=== PATIENT | female | born 2000 | race African-American/Black ===

== ENCOUNTER 2021-06-18 14:07 | Emergency (ER) | payer OTHER ==
[~2021-06-18] VITALS: Ht 167.6 cm; Wt 180.0 kg
[2021-06-18] MEDS ORDERED: ACETAMINOPHEN 500 MG TAB PO ONE (18:30)
[2021-06-18 19:09] LABS: BASO % 0.6 % (0.0-1.0); EOS # 0.2 10^3/uL (0.0-0.5); EOS % 3.1 % (0.0-3.0); HEMATOCRIT 41.6 % (36.0-47.0); HEMOGLOBIN 14.1 g/dl (12.0-15.5); LYMPH # 2.8 10^3/uL (1.5-5.0); LYMPH % 38.4 % (24.0-44.0); MEAN CORPUSCULAR HEMOGLOBIN 31.3 pg (27.0-33.0); MEAN CORPUSCULAR HGB CONC 33.9 g/dl (32.0-36.5); MEAN CORPUSCULAR VOLUME 92.2 fl (80.0-96.0); MONO # 0.7 10^3/uL (0.0-0.8); NEUTROPHILS # 3.5 10^3/uL (1.5-8.5); NEUTROPHILS % 48.8 % (36.0-66.0); PLATELET COUNT, AUTOMATED 285 10^3/uL (150-450); RED BLOOD COUNT 4.51 10^6/uL (4.00-5.40); WHITE BLOOD COUNT 7.2 10^3/uL (4.0-10.0)
[2021-06-18 20:32] VITALS: BP 126/73
== END 2021-06-18 20:39 | disposition home or self-care (01) ==
LOC: M ED 14:07
DX: N92.0 Excessive and frequent menstruation with regular cycle (principal)

== ENCOUNTER 2021-06-27 11:38 | Emergency (ER) | payer OTHER ==
[~2021-06-27] VITALS: Ht 167.6 cm; Wt 81.8 kg
[2021-06-27] MEDS ORDERED: IBUP-1022 PO (12:30)
[2021-06-27 14:27] LABS: HEMATOCRIT 42.8 % (36.0-47.0); HEMOGLOBIN 14.5 g/dl (12.0-15.5); MEAN CORPUSCULAR HEMOGLOBIN 31.4 pg (27.0-33.0); MEAN CORPUSCULAR HGB CONC 33.9 g/dl (32.0-36.5); MEAN CORPUSCULAR VOLUME 92.6 fl (80.0-96.0); PLATELET COUNT, AUTOMATED 252 10^3/uL (150-450); RED BLOOD COUNT 4.62 10^6/uL (4.00-5.40); WHITE BLOOD COUNT 5.9 10^3/uL (4.0-10.0)
[2021-06-27 15:05] LABS: ACETAMINOPHEN LEVEL < 2.0 UG/ML (10.0-30.0); ALBUMIN 3.9 GM/DL (3.2-5.2); ALT/SGPT 95 U/L (12-78); BILIRUBIN,DIRECT 0.2 MG/DL (0.0-0.2); BLOOD UREA NITROGEN 8 MG/DL (7-18); CALCIUM LEVEL 9.4 MG/DL (8.5-10.1); CARBON DIOXIDE LEVEL 28 MEQ/L (21-32); CHLORIDE LEVEL 106 MEQ/L (98-107); ETHYL ALCOHOL (ETHANOL) < 0.003 % (0.000-0.010); GLUCOSE, FASTING 84 MG/DL (70-100); SALICYLATE LEVEL < 1.7 MG/DL (5.0-30.0); SODIUM LEVEL 139 MEQ/L (136-145); THYROID STIMULATING HORMONE 0.847 uIU/ML (0.463-3.98); TOTAL PROTEIN 7.2 GM/DL (6.4-8.2)
[2021-06-27 15:08] LABS: AMPHETAMINES LEVEL URINE NEGATIVE (NEGATIVE); BARBITURATES URINE NEGATIVE (NEGATIVE); BENZODIAZEPINES URINE NEGATIVE (NEGATIVE); CANNABINOIDS URINE NEGATIVE (NEGATIVE); COCAINE METABOLITE URINE NEGATIVE (NEGATIVE); METHADONE URINE NEGATIVE (NEGATIVE); OPIATES URINE NEGATIVE (NEGATIVE); PHENCYCLIDINE URINE NEGATIVE (NEGATIVE)
[2021-06-27 15:12] LABS: RSV AMPLIFICATION NEGATIVE (NEGATIVE)
[2021-06-27 15:13] LABS: HCG, SERUM QUALITATIVE NEGATIVE (NEGATIVE)
--- NOTE | 2021-06-27 17:52 | ECGEPIP ---
[facility] - ED Test Date: 2021-06-27 Pat Name: MARTÍNEZ LOPEZ Department: Room: - Gender: Female Curatorial Assistant: ED : 2000 Requested By: EMY ESCOBAR Order Number: [id number] Reading MD: Karen Huerta Measurements Intervals [place] Rate: 90 P: 46 AK: 134 QRS: 62 QRSD: 76 T: 27 QT: 368 QTc: 450 Interpretive Statements Normal sinus rhythm No prior Electronically Signed on 06-27-2021 17:52:23 EDT by Karen Huerta
[2021-06-28 00:44] VITALS: BP 130/60
== END 2021-06-28 00:49 ==
LOC: M ED 11:38
DX: R45.851 Suicidal ideations (principal); F33.9 Major depressive disorder, recurrent, unspecified; J30.89 Other allergic rhinitis

== ENCOUNTER 2021-07-13 11:44 | Emergency (ER) | payer OTHER ==
[~2021-07-13] VITALS: Ht 167.6 cm; Wt 86.3 kg
[~2021-07-13 11:44] MED LIST: IBUP-1022 PO
--- OUTSIDE RECORDS SUMMARY | 2021-07-13 11:50 | CCD ---
Author Author [facility] Organization [facility] Address Unknown Phone Unavailable Care Team Providers Care Commercial Glazier Name Role Phone Abner Delacruz Angel Unavailable Abner Delacruz Angel Unavailable Mitzi Garcia MD Unavailable Unavailable Mitzi Garcia MD Unavailable Unavailable Mitzi Garcia MD Unavailable Unavailable Mitzi Garcia MD Unavailable Unavailable Mitzi Garcia MD Unavailable Unavailable Mitzi Garcia MD Unavailable Unavailable Mitzi Garcia MD Unavailable Unavailable Mitzi Garcia MD Unavailable Unavailable Mitzi Garcia MD Unavailable Unavailable Mitzi Garcia MD Unavailable Unavailable Mitzi Garcia MD Unavailable Unavailable Mitzi Garcia MD Unavailable Unavailable Mitzi Garcia MD Unavailable Unavailable Mitzi Garcia MD Unavailable Unavailable Mitzi Garcia MD Unavailable Unavailable Mitzi Garcia MD Unavailable Unavailable Mitzi Garcia MD Unavailable Unavailable Mitzi Garcia MD Unavailable Unavailable Mitzi Garcia MD Unavailable Unavailable Abner DELACRUZIN Unavailable Unavailable Rey AG MD Unavailable Unavailable Rey AG MD Unavailable Unavailable Rey AG MD Unavailable Unavailable Rey AG MD Unavailable Unavailable Rey AG MD Unavailable Unavailable Rey AG MD Unavailable Unavailable Rey AG MD Unavailable Unavailable Rey AG MD Unavailable Unavailable Rey AG MD Unavailable Unavailable KIMBERLI, S SISI MD Unavailable Unavailable KIMBERLI, S SISI MD Unavailable Unavailable KIMBERLI, S SISI MD Unavailable Unavailable KIMBERLI, S SISI MD Unavailable Unavailable KIMBERLI, S SISI MD Unavailable Unavailable KIMBERLI, S SISI MD Unavailable Unavailable KIMBERLI, S SISI MD Unavailable Unavailable KIMBERLI, S SISI MD Unavailable Unavailable KIMBERLI, S SISI MD Unavailable Unavailable KIMBERLI, S SISI MD Unavailable Unavailable KIMBERLI, S SISI MD Unavailable Unavailable KIMBERLI, S SISI MD Unavailable Unavailable Re-disclosure Warning The records that you are about to access may contain information from federally-assisted alcohol or drug abuse programs. If such information is present, then the following federally mandated warning applies: This information has been disclosed to you from records protected by federal confidentiality rules (42 CFR part 2). The federal rules prohibit you from making any further disclosure of this information unless further disclosure is expressly permitted by the written consent of the person to whom it pertains or as otherwise permitted by 42 CFR part 2. A general authorization for the release of medical or other information is NOT sufficient for this purpose. The Federal rules restrict any use of the information to criminally investigate or prosecute any alcohol or drug abuse patient.The records that you are about to access may contain highly sensitive health information, the redisclosure of which is protected by Article 27-F of the [facility] Public Health law. If you continue you may have access to information: Regarding HIV / AIDS; Provided by facilities licensed or operated by the [facility] Office of Mental Health; or Provided by the [facility] Office for People With Developmental Disabilities. If such information is present, then the following [facility] mandated warning applies: This information has been disclosed to you from confidential records which are protected by state law. State law prohibits you from making any further disclosure of this information without the specific written consent of the person to whom it pertains, or as otherwise permitted by law. Any unauthorized further disclosure in violation of state law may result in a fine or longterm sentence or both. A general authorization for the release of medical or other information is NOT sufficient authorization for further disc losure. Allergies and Adverse Reactions Type Description Substance Reaction Status Data Source(s ) OTHER OTHER [facility] Encounters Encounter Providers Location Date Indications Data Source(s ) Inpatient Attender: Angel Sargent er: ANGEL DELACRUZAttender: SISI AG MDAttender: Mitzi Garcia MDAdmitter: Mitzi Garcia MD [id number] 06/28/2021 02:22:00 AM EDT - 06/29/2021 07:30:00 AM EDT [facility] Patient discharged. Medications No Information Insurance Providers Payer name Policy type / Coverage type Policy ID Covered libertarian ID Covered libertarian's relationship to tesfaye Policy Tesfaye Plan Information U [id number] Self [id number] [facility] [id number] [facility] [id number] [facility] [id number] Problems, Conditions, and Diagnoses No Information Surgeries/Procedures No Information Results ID Date Data Source [id number] 06/29/2021 05:26:11 PM EDT [facility] Name Value Range Interpretation Code Description Data Dana rce(s) Supporting Document(s) Discharge Summary [facility] KWROQu3iHiUVAjUq16/ZAIbjWJNtl2NqEXxwMMl9DNknFZKlP0MsADQ8zB2zILW2GBxIBcRgDtXdKIP0 lbm [file] AgICAgICAgICAgICAgICAgICAgICAgICAgICAgICAgICAgICAgICAgICAgICAgICAgICAgICAgICAgIC AgICAgICAgICAgICAgICANCiAgICAgICAgICAgICAg ICAgICAgICAgICAgICAgICAgICAgICAgICAgICAgICAgICAgICAgICAgICAgICAgICAgICAgICAgICAg ICAgICAgICAgICAgICAgICAgICAgICAgICANCiAgICAgICAgICAgICAgICAgICAgICAgICAgICAgICAg ICAgICAgICAgICAgICAgICAgICAgICAgICAgICAgIC AgICAgICAgICAgICAgICAgICAgICAgICAgICAgICAgICAgICANCiAgICAgICAgICAgICAgICAgICAgIC AgICAgICAgICAgICAgICAgICAgICAgICAgICAgICAgICAgICAgICAgICAgICAgICAgICAgICAgICAgIC AgICAgICAgICAgICAgICAgICANCiAgICAgICAgICAg ICAgICAgICAgICAgICAgICAgICAgICAgICAgICAgICAgICAgICAgICAgICAgICAgICAgICAgICAgICAg ICAgICAgICAgICAgICAgICAgICAgICAgICAgICANCiAgICAgICAgICAgICAgICAgICAgICAgICAgICAg ICAgICAgICAgICAgICAgICAgICAgICAgICAgICAgIC AgICAgICAgICAgICAgICAgICAgICAgICAgICAgICAgICAgICAgICANCiAgICAgICAgICAgICAgICAgIC AgICAgICAgICAgICAgICAgICAgICAgICAgICAgICAgICAgICAgICAgICAgICAgICAgICAgICAgICAgIC AgICAgICAgICAgICAgICAgICAgICANCiAgICAgICAg ICAgICAgICAgICAgICAgICAgICAgICAgICAgICAgICAgICAgICAgICAgICAgICAgICAgICAgICAgICAg ICAgICAgICAgICAgICAgICAgICAgICAgICAgICAgICANCiAgICAgICAgICAgICAgICAgICAgICAgICAg ICAgICAgICAgICAgICAgICAgICAgICAgICAgICAgIC AgICAgICAgICAgICAgICAgICAgICAgICAgICAgICAgICAgICAgICAgICANCiAgICAgICAgICAgICAgIC AgICAgICAgICAgICAgICAgICAgICAgICAgICAgICAgICAgICAgICAgICAgICAgICAgICAgICAgICAgIC AgICAgICAgICAgICAgICAgICAgICAgICANCjw/eHBh V4bsaCLltgL9P5ziDc4DQr3GYJ4jy6JwUKHaILhrkvWaTnoFZfYhEMLsRmfNEsj7MQugUX8EbZKeS7Yb C5IhKHiiQE0RSOXkHWZdpZKxOMHbEDWfFkV1DDDwMGkgPC3BxLFyMFdaVBYbWOYsVfUcIKQdYFWsUHCx SLDgDLERISXpPVEvRhSfAYYlAKHwTSnxVLEMNRU2JX GzYqXyHJByNQLbItTvDPOIPQ7PLiOkK2NiqD80NWWfCYs+Fo1XKK3ln1WxOOg5TLQaFL7evr7SKKwVBi TdT6DipeF4KXQxRJKvEm7UIGRdQVUolBN3FyRwMGNORgTuR6JprH03XIFQYg4+DQplbmRvYmoNCjUyID Rno0AyKIv3YX9ASHBgYOo0vIYvMCqqU7jrnqawHGE0 oK1fnxpoGuwgTaWnvWrfELZdLEU9EBGtNW7XGJZ9SSDmZekcEyItXCYwUnsrZJSJJQmQDnQvE7Pmq0Ys LoL7KABgUjEtIAekQFSxFrT4XF39iPqgUQ1SMNDiBUXzTD69BNCbPRIwDq5JNm3FTqAqAR6gdh1BKLFw XHToDwyQEkz9VZegCZ7VnRVwJ7XnvCTtd4wQGtVyA0 BIIVQ3ACFiGv5VJMIvCfZyUQTzZNgkKG1vEWBhNXCOyWcavkA4CD8UCC5dkhHoKB1WNrIjOp6qTf5JXx TrU0SuG9TqYADsVIGRBZxdSI2AGXefVV3aYU8Sq4KVgAOinC2nfv9PVVRdEXYeAzoadd7EExlbI8K0oT cmSIGqFSBoZLHBMYviEC3FDUKjAQC8KST9XBMdNPJM LqHeQ45jOJ2IN1Nwj24dEhO3QVDgEaPoOWdqOJ40xYnqejEvrDFooCjrAG6RBt1+DQplbmRvYmoNCnhy KKBOZpPsFNINBkQoTBShNDSoJBBvRtK3XtJvGe5SZUHzEPDwJGFvLbJxNJYkVBLrUZhbLHMdSRXbQUr9 ZKXqVBQnOZ7NGoCjWQQdLjR6DlIzUWIzCBQcpu1WAL PhFOXsJXY8SxJrGNRaFOTvDRlkGFSeJGS6NUc0EGWfTOVbXX3MIvAoMXLtYQT2LNFeTZTcZAQgdi0JQJ OvNNStEUduTlIcTHCyPSCjWGfcXGRwBIK2PPZpLDSyKFHcVB3XDjQhOIQnMPJ2WmWhLKXlRAFdar4DDJ RjLJBkEmTzJVAlNMZmVAXoJNiaJPEjZKF3BcbeDLVk UCLrSQ2TDtZvVACoUYR7TUujNHQgFJJasp4ZNSXqSUDoJNRrQVUeMRMyOHFoYGjhVGDeBAMdRdE8TDGd ZHFpMI8YGvDjKTXqRbI7FYMgXYHcTKOnah5DMQDzZCIbIBp6RLAtVSJeHWIbAImfYCLiSRS2Jhn3NBHz QROhZT1TVoBoNYMmHih4CKXuFQRcXHAqya6SMRAwZZ BcYeOeYnTjDVDqFQKrLDerZOVsVYFuPuN4OYLfFCXtIJ4JSpWwBHIjLtQvLQAgRNMgGNYrvk3ZQRTnMI LhMeIfXxXjZPTsGSVkOUcdZDTmDAQ3QONkKEJsYCBjKY7TWtOlNMSqKaveTZhyDTWlLYIsnj8JCEKxCU RkPVEnENBwNFCtGBBfDOxoTEOaYNZ2XsN8WLXyKTIz FM8WAjChPLCvXhf6WYagIRJoXXZjxc5ZYMVpRWS2QRR9TEMlOCMbNEDwECahJRTnJEVdPgAaQONdPNKa WB4LErWcYGRbBEI2DRftMWUjPPOeyt4RZNFcOJI4NnZxSlDqOUUcWSCgWQbkOALvDDUgVFQhYQBcOYUw VG7XSsUxSFBvOIR2QvMxHTPkBPAnda7LWLEsEIR8Tw s5ZTIaNBMcYMLaYEtkTIWkMAMwBSR3JQOpUYVgQI7CNkIhWCNuDWUsOUpnMWCbMJBuza4QRDErNWK7SP M9MnSiQUMlMQVqFHkdZLSmKDO3VDR0ITXpSZRxMU1CSkNsEQXzFCZmGCioWYJvAOEhxc8WHNNbVFV4IW Y7AGBnUWErJVQlXVfgUECzKXX4Ysd6UOAuWVLnET0D NuLgWVEgIsG3CjBkLOKvAQBnmu6KTHBqJTQ1ZHu5RyRfXCDlAQIdLRwqROFtQIBcRWS2HWJpTGGuPS2B FzNgSDQbXyP8CPYlNHAbXFEiyp1TFPJwNWJ1JNN3HrLdVJMhPWKmCQfaULPxSXSsArc3SEGhICWrMS5N UqRuWVLqRiLcFTwcVGTkOLKzcy9TJMVyLZL3LdW8KH RaTQAlDOVmFMmlPNWhBKIgMsPrDIUuFGCqAV6HOeThTEDvLmBhCbIgGWLvIVJhkl3YJIZvFMD8OBEeNO IwRBClHLIyCXjcAWVhOLR0WmLlVPEoTLXeCE9YExBmTSxaDUMZYmo5DNxkK7a6HHH6VK9FC9Iya0NdHG RvKRWOLFikQP6vunDqWHDbVg0JQ9qELgdlPfSvYTBz CsKxUnHrYTX8L4W6EqYxRHC0GqQ7ZSLeWZ9kAQS1ArX6IMSqBeYxBMF0LXokUMckZlX2GcTeTiW8VMSf KmZcFT3RMy2FMbA2GSV1aMSkCr3UQlR8AApWHjHbVZ4XKZh= ID Date Data Source [id number] 06/28/2021 08:03:21 PM EDT [facility] Name Value Range Interpretation Code Description Data Dana rce(s) Supporting Document(s) History and Physical [facility] PGEYTb8mRrDHHnUc35/QUDxbANGda2KfGMoaFDo8TIfhNPNgW9QoAVR0pE7zDIJ6UAvCBhWqJpChMVG9 lbm [file] 0QPlS5ZNN8pCOxSr7AWzM2VYQGPjKrRE8CSNa= ID Date Data Source [id number] 06/28/2021 08:02:31 PM EDT [facility] Name Value Range Interpretation Code Description Data Dana rce(s) Supporting Document(s) History and Physical [facility] APBBEa9bOzEPFpEp66/JVCliCQBro9UzBEnkUPt1UJaoLTZrQ5BqSXI2qZ2eVLV9MSuJJzIiVfZkWIA2 lbm [file] AgICAgICAgICAgICAgICAgICAgICAgICAgICAgICAgICAgICAgICAgICANCiAgICAgICAgICAgICAgIC AgICAgICAgICAgICAgICAgICAgICAgICAgICAgICAg ICAgICAgICAgICAgICAgICAgICAgICAgICAgICAgICAgICAgICAgICAgICAgICAgICAgICANCiAgICAg ICAgICAgICAgICAgICAgICAgICAgICAgICAgICAgICAgICAgICAgICAgICAgICAgICAgICAgICAgICAg ICAgICAgICAgICAgICAgICAgICAgICAgICAgICAgIC AgICANCiAgICAgICAgICAgICAgICAgICAgICAgICAgICAgICAgICAgICAgICAgICAgICAgICAgICAgIC AgICAgICAgICAgICAgICAgICAgICAgICAgICAgICAgICAgICAgICAgICAgICANCiAgICAgICAgICAgIC AgICAgICAgICAgICAgICAgICAgICAgICAgICAgICAg ICAgICAgICAgICAgICAgICAgICAgICAgICAgICAgICAgICAgICAgICAgICAgICAgICAgICAgICANCiAg ICAgICAgICAgICAgICAgICAgICAgICAgICAgICAgICAgICAgICAgICAgICAgICAgICAgICAgICAgICAg ICAgICAgICAgICAgICAgICAgICAgICAgICAgICAgIC AgICAgICANCiAgICAgICAgICAgICAgICAgICAgICAgICAgICAgICAgICAgICAgICAgICAgICAgICAgIC AgICAgICAgICAgICAgICAgICAgICAgICAgICAgICAgICAgICAgICAgICAgICAgICANCiAgICAgICAgIC AgICAgICAgICAgICAgICAgICAgICAgICAgICAgICAg ICAgICAgICAgICAgICAgICAgICAgICAgICAgICAgICAgICAgICAgICAgICAgICAgICAgICAgICAgICAN CiAgICAgICAgICAgICAgICAgICAgICAgICAgICAgICAgICAgICAgICAgICAgICAgICAgICAgICAgICAg ICAgICAgICAgICAgICAgICAgICAgICAgICAgICAgIC AgICAgICAgICANCiAgICAgICAgICAgICAgICAgICAgICAgICAgICAgICAgICAgICAgICAgICAgICAgIC AgICAgICAgICAgICAgICAgICAgICAgICAgICAgICAgICAgICAgICAgICAgICAgICAgICANCjw/eHBhY2 xzmXZuerI5Q3wyIj8LEy3UTH0uf0RySSXmIAeqzxMu ThvWTkCnICHnIpzNKcu4PIszUA6DnINaR4CmY3UdVPrqUN7XNZAjASDahZCrCDZgZASrYaB2AFOiUTvo NE6MrXGkQBsnFOHmFZWeFjZeBUVtGMOeISPuZPKiZDBTDWKuPATvYgShHBRqJHFeWMgjSNADLYGbBFPr LtDeKdViTOKnAY5SAWXxO400veNxOE3ZAg2DKaRtGP 1pyd5VOSKfXUTsMwzWKxe8WSthCP4GmJHecZP7QgTnIPVBRxQoS1osg4YzAFVmQIIZBNtlHA1Uc0BcqJ AxDQo+Yj6TXT1gw2EoHFd6BjQjOX4pnn1DTFlMLzAaI9RazPzrPBdcVWMgpFNMz9JoL6GsYjuzBLJgUP KmFBHoOa6bXXHzHJRrAcF2IYZJPC8QMISqOUOqkWAk ZBQzURZBCR2XEZxeNLR7CRAdyzDvaCFpGFglUW6NFKEmhhZdKOOlRROWUVr+Aq2YSC1ht9QsEFrbIIVj VE0sjh0NEJgYBdFvJ9N8bZBcU5Irpl70QB4DaFD6kFHfDU3SiQ3oGA8Us6ZuLHLtNyMmTCSyBGLiVLTq UJAbQqHiFL7NCDZcMnAstZMwTUUuGvHoBoYjKDMlQL HZVnBbE9IjHYerDzSpNHBSVG5IRigpTAYyG4TBFByTVC7QR0sXJ8UGXI3OFSdIQuwJIbERT0RDT0DOP5 4KVrSaJB2+HD9NOj7ERpLoKN0upt4NGNacQJMgRijCAgk2WZrgTU2WlWWjS1InmCOtx1nCTvSvE4UNQE UkLPWwJi6GARAvHsTmOBZkRKxrTI6eLRPjQZUPmHzi aoM5IT5JFS5blsNuUQ5IXgQiYv6xQy0QOfGcZ8EgT0XcWOHmLPTBZOynWY6PWFgpRZ0cIA3Wu1ZXfEFt cO3hdr0FHKPsRYNpLvicvz0TXfkiI5H3ySqiFEXrPUMjJMKDPLazSM5EAGDtYRP6VQQ0ACSkMENIPtYq M54gRJ2LT3Lpy98cZdY0QQDkWrFjLQpjJZ20iUmbbo NsnJRpsPpnPL8SOd4+XYkndhApUlfDVrgpMAERYsKyUQhTBsBpHDHtPCVqZOKgOeE4EfFnXe8UUGIdOR TiXTSqSmGvCWWrNEVlXPklDTMpOZO9ShzyIHHeNNSmTO5KRgUuGROpWEEbJbSmPDMhVMUhxo1NZKQuHE StKJF2LzKxGRExJCYqDYscSZEsJKQ8YmJ5TBVhYUWc AN6ZWcJuQQRgPCG8LrtzEJWaVUFxeo6LDXMaAYCsQYEmUHNgGPRaBFCuVBagXDAqIMV2BVM7KBMyLJTc HA7TLwYfUUFzWUA9YcZiYXTfEJSxnf2QTECyXLXsWab7BTDxBCYaWWHlHBjyRKMnRZD6QYXgQUWlEDKm AY9YYmAhRVPlHAP9YJarFFWtYNIklz9YQHAqCGFqSU U6FCHsOXXyHOUpMSxoLFYmNYK7UdWjQNDtQKVfIS8INxUbSDEgTyL3LCdaNBPeNZTpdg9EHCRbWKDkTv T0OGNiWFFvXCExWVujUCMgZVJ6Odw5LPVzFQOoIN9JCvXxJDDzTNK4KARdSIKyNZEbry7STNWyUQGjEg KoXJLrMDIdXUHnOUavYOEbXTPlShIzXTYiXEAaJL5L NqSzCEGvIaO9RTJuCSAaLGNwea7SAZNzJMVpNFV2GBIhYJIyFQUwARgyZDVnWRFlFrEdIORxKOIyKO4Y AnFyWIUwSsW4EFVrOBHeOFKpdj8GCPBoJYRiPaloLLLwCDAiOHYcDAxjPXYpRKUjWInaTEXiYNGeKO6Z HhLnEJLoIgZcYRNnVEWyURFihe4SVGVfKUXtJPK9Sb FtATRtOWSgZMgyGOGkTQZ2CQSiJXAwHFJpQR9YFwMdBYPrKkX6DJCeMWTnAHMlyx9EPHGoGIVhOPD7Jo KyDNOkDLErOPstPOYoWKN2GwngQELySCJyEM0LSbQuHLMmBfD6YLFuJPHgCAEfta3WNQIxQMRdFga9IF FwDDCvXCZxYWzhLWByOCI5SNG9MHXfPFWgPD3CXiCb HPRwBnukYVScGLOiITSxqs4OARAsERJdUDBiSdThTSTiNUUhGAegBQCtIGC4TTx4TDUfEBOmTB2DDcQl ZSCtMOJxFEHhQMTxPULifd0TYQZfVLI1QzT9JcKiPLStPAVvNZlfAEIeAIWpLQs1PYExYNBwAQ4GMvCl UJIoWCIdMbOzJVVgBELmxy6MJNEwFVI5JWC7HNCwVQ HvYHLjPUanJDZqOVQ3UcNgTGGuXRVgCR0ZMwVwSGXlCAHnZPVnVAUfCSNddd7VACXbDMJ0RkE7KkMhSN AbETNhISdxUGRzZFU8YLslOORcIHXmLB5BVjBeEPhfAORTSjl9GYmxW4n1LBM6EJ6ZW3Yqv5XkYUytKY JMZQckSJ3aflCbLWVkEz6PA3nWGrpuQnVoFUM8YKMj N9Q3Lxr9HvQoFbKtRNBxA0N5LzZ8XZ0xUACmWTQzQFmkYYD8JYlpIDLiZQNxDtBeEtGyGNMwFHG6JmBp UX9KTz5SNeO5PFD9qAEvDz0UVBT9DwwDWtZxIJ6OTXu= ID Date Data Source [id number] 06/28/2021 02:19:[address] [facility] Name Value Range Interpretation Code Description Data Dana rce(s) Supporting Document(s) Consultation [facility] HPBZGk4gWiQHPzAy75/GLFlpKTTvd2FuJSdpHUb3QKhkMTIoA9RdIDQ5bH4wQOB1JWyZWvKgVnYsTMP3 lbm [file] DARLIN+EDdkEVmirKe2tEHbRCNsDr0GEFTvHNYxEJIhGFMnINJwLPDvJNVlSDLhKDJhMQKrHIHmEXVlUBUb ICAgICAgICAgICAgICAgICAgICAgICAgICAgICAgICAgICAgICAgICAgICAgICAgICAgICAgICAgICAg HW5GLYMsPRSvZEEwXPYoSYYmZKBqNDFjNSZmUZPqVZ AgICAgICAgICAgICAgICAgICAgICAgICAgICAgICAgICAgICAgICAgICAgICAgICAgICAgICAgICAgIC FfJKTpSMTlPVQxOA9IKQEqHXOfODXtEGSeRELwUJYoPZCqBIEpVQDyOSFkHHEzKGNiHZOuQRDpZXJlIU AgICAgICAgICAgICAgICAgICAgICAgICAgICAgICAg ZBVwZNXqWFFwQWLfOAJiAHFkMQHqDT5AMYOpBBKbABYrGAIhJOIcRCPdWXMvZDPrOCOoWPUhTCGxHFKx ICAgICAgICAgICAgICAgICAgICAgICAgICAgICAgICAgICAgICAgICAgICAgICAgICAgICAgICAgICAg AEBjLD7BQRCiMXWaRMWtFHRvBHPsIGAnSFUuWXDiQF AgICAgICAgICAgICAgICAgICAgICAgICAgICAgICAgICAgICAgICAgICAgICAgICAgICAgICAgICAgIC LlJVKkKSZcLBJfCDXjVK3AMFXaPQPbIDChOWUrELWaOKPvRXArGRHrIMEwOZMxMHZjPLDcDPHmQBKvZG AgICAgICAgICAgICAgICAgICAgICAgICAgICAgICAg LCSkOSZiOBFvOUHeKHNuQHEuVNFfJQZdUF8GOLMeNMPbXAOcXOSgQLTpAOHnQBWbDLXcQROgJZYcMHWp ICAgICAgICAgICAgICAgICAgICAgICAgICAgICAgICAgICAgICAgICAgICAgICAgICAgICAgICAgICAg QRDeUSUtEN1VAKQfXJCrWNIjLSLgAXCmUQHrFHDbLU AgICAgICAgICAgICAgICAgICAgICAgICAgICAgICAgICAgICAgICAgICAgICAgICAgICAgICAgICAgIC GjQSNdZETxUGOoHFJsGDOsMP8HQUPxEFGfWGZnJCYmOFRyDCVyHFTxPAGyDVJjCMTzOKWyHLXwFMUtBC AgICAgICAgICAgICAgICAgICAgICAgICAgICAgICAg OZArYNIwWVYoYPEqDCPnRHCiPZHsSYJeVYOrWL3YZDOvDMOvXNIiMJThJNQvLXGmXEAlPEOhGQJbQNOv ICAgICAgICAgICAgICAgICAgICAgICAgICAgICAgICAgICAgICAgICAgICAgICAgICAgICAgICAgICAg HMVpBISsYNPnMR2CJD91iJHqh3Z1IQXmZX2fihu/Pg 9FMGfhpnRizZUfYI4ZOlSlEQ0qfe8BUtDpLG3uck1OFHsIGoUtB4O3oMDhTEOuNMSRMnAxK32rGUtpNa 04GJqdBMVkHtXcDLu2Tl6YGxWhX4qsEQWrYfQ5DPRlFhR2MIYsIpK3EDGlHmAiCVNmWLVmLRTeREZHRE 1LVcDtZ5EghA04GLMEJk2+JTaifoNiAjhREmY3MORc o0QeQKn4WV8KQJSpZynfp0QvNtgmRJRMVOojGQ6BEGO4WWY6UPIgEi7HNWFkZ084rjGrCX7RJe1WIlAs TN8mpa5CNmniXNOdXykPKgg1FOmjDE2VkSIiOKrVi31aeSj0icBhjYUDSXJhzNEwfGDfTMCCxZLhs0la jgEvNNeDR9egLKPlKRJwGc6sNHLsQHZeHmZ7QDTQHB 4WHMKjPMZhgNNmBTXnJGFXXL6IZKeoNCY9JONqwiQvmQLvMHqzOI8RGSYlsuAwDrsnCWHPMJn+Pg0KZW 4au9UiUKjxJXKpDJ6vkl7SXUcTNrAgJ7P0wAVjU9V2UGvvIa2HJIPcUUZzBmYiUOTVGMvaCH4XTC0dci V1DU6GyGMiGQUmDPAdiFQgIVs8A13wvKWmXAfaLG8V ICA+Maximo+Vo0SWTUoWHYiQGYnKgNhWMCDXlTzW9MlB2XTg7DvB2ShNW58yRjjkvPnZUrqJX0GAB1eOYRv YFQQVN9EkCVrhN1mthSmWmBxPTMEGpYbR35rmTZdSEKdLUL9CGNrIj2KGLNeX9RyyoHoaQtzxtDuWQWt DOVGQW1AORejlaVykZEbeLelDA09hOmrHH1ZLs8NNj SvZQ6hkr4VoKTyHo6FYHKoJL4MYRBfVNNdHDRvRZR3MVSdLuTaUSpeQWSiDGJzEYI9QSRuDXJxBW2HSh YaIZSaRnC1FBIrFZMbHCBxpp4TRRQcXJVkCsUnUPXyXYZwTTCqDTboDHTqNGPpKLL2BVUeDMGyZU0DYv NvGXYaYIG5BMMfNNDgBEDbdy1XAXIwORZjWzbaKdHx LORpOSOmINfhRNGvMKH9HIHsYSYzEMWwFQ1FMjOsQVVbTSpoCZyjVPIqWHLzko4MFSJtVXUpSCo7JTRg VOKhBYImWMvzOHHgKNEtAHJ3QQLrALZiNK0UQjDtTQCkALB2CVQmMYZjYIBkfy8QMGAuQIXzIGAnQQEt VZXkALTkGJnaXNPtYHN3QoU9IXPxEXJkBU4FQdWqBP IzLNG7YeKqHRHiQZBuqg4GBBJoIKXjYgSmEXUzAHCwQJAaOWdsLGQlBII1TxXgOVHjZIApRG6ZHgZgMB GhLOp4BPFaLPDnONZjti2RCRIlYKXuHYg2OwNnAOLoEAWkGSrfONTjIJM4TIb4XMAvAAVmUH7RAcFeBQ MwLDdwKkCmNDYmJKHdqi9OWTKbKIPeZEY8VDMmUXAg CBRdHGjeLDQaZMDqJJT0NALuSONvHC8CYcHmMSGkWwIpHqAwUFFzOFNyvx5SCICwNSMzMWJeUNIhWJVy KFOwKSpwWZQuMOFkPFXzZJIfPNWzYG5WXzNhYENeGmN1CqCqKQAfTKEsqb1EDRJjPZOcLrXiMPRcMCNe ZXYzTDhsPHBeKEOgLkm0AQSeAKTlYK9DZzPhHZHvRg U8MSjvJHXkLADxsy1RyIHqsAyxgf3CBUfHAj3QyErsIZQzMMxvPn0zlWGoQVEnIKIPEu6TedBlCBVjUB QPQQqhFJYuTLCiRnKrQ1AbCikxEOw7SBIiVsGrFpCkAxIqFoq4TfOvMdZ0YgWsDBFoF0T7M2V6ZOOeVH K5HfL4IsI8GKI6BLH0KHQ+IC7zJVp+Ze0Ah7TjcaW1avCeIGdkJvt2Xc2XBUCEE6HLAy== ID Date Data Source [id number] 06/27/2021 02:19:00 PM EDT [facility] Name Value Range Interpretation Code Description Data Dana rce(s) Supporting Document(s) SARS coronavirus 2 RNA [Presence] in Res piratory specimen by ROBIN with probe detection NEGATIVE [place] This lab was ordered by [facility] a nd reported by [facility]. Procedure Social History No Information Vital Signs ID Date Data Source [id number] 07/02/2021 07:48:28 AM EDT [facility] Name Value Range Interpretation Code Description Data Source(s) WEIGHT RECORDED 195 lb 195 lb [facility] Body height Measured 66 in 66 in [facility] TRANSFER FROM [facility]
[2021-07-13] MEDS ORDERED: ACETAMINOPHEN 325 MG TAB PO ONE (11:55)
--- OUTSIDE RECORDS SUMMARY | 2021-07-13 16:04 | CCD ---
Author Author [facility] Organization [facility] Address Unknown Phone Unavailable Care Team Providers Care Grocery Store Associate Name Role Phone Abner Delacruz Angel Unavailable [...] is protected by Article 27-F of the [facility] Public Health law. If you continue you may have access to information: Regarding HIV / AIDS; Provided by facilities licensed or operated by the [facility] Office of Mental Health; or Provided by the [facility] Office for People With Developmental Disabilities. If such information is present, then the following [facility] mandated warning applies: This information has [...] law may result in a fine or usp sentence or both. A general authorization for the release of medical or other information is NOT sufficient authorization for further disc losure. Allergies and Adverse Reactions Type Description Substance Reaction Status Data Source(s ) OTHER OTHER [facility] Encounters Encounter Providers Location Date Indications Data Source(s ) Inpatient Attender: Angel Sargent er: ANGEL DELACRUZAttender: SISI AG MDAttender: Mitzi Garcia MDAdmitter: Mitzi Garcia MD [id number] 06/28/2021 02:22:00 AM EDT - 06/29/2021 07:30:00 AM EDT [facility] Patient discharged. Medications No Information Insurance Providers Payer name Policy type / Coverage type Policy ID Covered constitution party ID Covered constitution party's relationship to tesfaye Policy Tesfaye Plan Information U [id number] Self [id number] [facility] [id number] [facility] [id number] [employer] [id number] Problems, Conditions, and Diagnoses No Information Surgeries/Procedures No Information Results ID Date Data Source [id number] 06/29/2021 05:26:11 PM EDT [facility] Name Value Range Interpretation Code Description Data Dana rce(s) Supporting Document(s) Discharge Summary [facility] XNFYWu9dRqGOBoFz40/LHRjrBRClr7WeKBlfXKp8RGiwMZYmO3JxMRJ0hY8lGXY0VBvVXcGcJeVcKVV6 lbm [file] AgICAgICAgICAgICAgICAgICAgICAgICAgICAgICAgICAgICAgICAgICAgICAgICAgICAgICAgICAgIC AgICAgICAgICAgICAgICANCiAgICAgICAgICAgICAg ICAgICAgICAgICAgICAgICAgICAgICAgICAgICAgICAgICAgICAgICAgICAgICAgICAgICAgICAgICAg ICAgICAgICAgICAgICAgICAgICAgICAgICANCiAgICAgICAgICAgICAgICAgICAgICAgICAgICAgICAg ICAgICAgICAgICAgICAgICAgICAgICAgICAgICAgIC AgICAgICAgICAgICAgICAgICAgICAgICAgICAgICAgICAgICANCiAgICAgICAgICAgICAgICAgICAgIC AgICAgICAgICAgICAgICAgICAgICAgICAgICAgICAgICAgICAgICAgICAgICAgICAgICAgICAgICAgIC AgICAgICAgICAgICAgICAgICANCiAgICAgICAgICAg ICAgICAgICAgICAgICAgICAgICAgICAgICAgICAgICAgICAgICAgICAgICAgICAgICAgICAgICAgICAg ICAgICAgICAgICAgICAgICAgICAgICAgICAgICANCiAgICAgICAgICAgICAgICAgICAgICAgICAgICAg ICAgICAgICAgICAgICAgICAgICAgICAgICAgICAgIC AgICAgICAgICAgICAgICAgICAgICAgICAgICAgICAgICAgICAgICANCiAgICAgICAgICAgICAgICAgIC AgICAgICAgICAgICAgICAgICAgICAgICAgICAgICAgICAgICAgICAgICAgICAgICAgICAgICAgICAgIC AgICAgICAgICAgICAgICAgICAgICANCiAgICAgICAg ICAgICAgICAgICAgICAgICAgICAgICAgICAgICAgICAgICAgICAgICAgICAgICAgICAgICAgICAgICAg ICAgICAgICAgICAgICAgICAgICAgICAgICAgICAgICANCiAgICAgICAgICAgICAgICAgICAgICAgICAg ICAgICAgICAgICAgICAgICAgICAgICAgICAgICAgIC AgICAgICAgICAgICAgICAgICAgICAgICAgICAgICAgICAgICAgICAgICANCiAgICAgICAgICAgICAgIC AgICAgICAgICAgICAgICAgICAgICAgICAgICAgICAgICAgICAgICAgICAgICAgICAgICAgICAgICAgIC AgICAgICAgICAgICAgICAgICAgICAgICANCjw/eHBh T3foqCHsmdB0V7mhVu2ICi5YUW5yb9MtYMNpOIzlkdBvZunAYiOgXYBmZfcAHgn4DXkcLW4CaJNxJ6Sk D4LoYIimPT4JYTXfRJFcwPJcHLFcTWVaIhL8GTXoOBmyIM2SbXCiHEtpIUGmTASyHxHwFXKrTANjGMRp WZFlHBTTVXCjEZDrLyZoQMWlGDHjCWhcDMJDRWV7AU RdHjLxJYAuFXTgLmGhXFRDUU2AHyGbE7GnvS64EXAcKFc+Nt4EZN3vl7ZbIXe0FUEsOG7acq5TRSuWYs BsB6JyhfD2DNEiXOVkRm8OAERoDEHlbDS3ChEmHKQWIjPbM4YupN29QDYAYr3+DQplbmRvYmoNCjUyID Xqq4XxXUw8NJ0TWCKiCNa3fKVfFXbrB4vwtxxaGRI1 jU1yatlpXbbqHwNlwNvzFICcZJV4RYOpRX2VFGF3EMEcZeqeJoYsTVVgIzxyELUCLStJDiYzW8Lyc5Ai UoA7JXXaRfKhHYexTULkDtF4YX26zWahRA6WHXZsJPZiTA58SXBiYZZoHx7VJq6WIdMrEK5jvq9IMCFj PNEtBpmGPsh3WHrdBA8AeOUjF8QjxZZme5oIQwKcI7 FDIDA5FECrRa6NGDIvEdLaKEWwUYifKX2xCFPjGGNCwAwkoyC5ZK4AUD8oofFcHY3LVmNhBl7tNt4EOu RqF6GcF0SrXKTmCMWHXFhmTS4KDPjwIT2nIW3Mq7SFdYCqnQ1vaq8NXGFjOWRsAejgmd7MPfyqG7T7qA zsLWLbUFIsFZFQLIrjNN3TJGXiJGV1JDT9SAAfWXAG RxLtR20aCH4US4Teo22mUpW0HVNtQtGiAYgkNN04vIawozJuoUGuiWzjKZ4CCq3+DQplbmRvYmoNCnhy NRGILuArVMSXJlSgITIlJORgKYHeVrY8PkDhXu6ZFCGqOMEcZGCqSiAoUTHpCCBbRLscDPBcZPRqNVu2 AAEoQDVaGX1EEtZaOMUgNhW9FpYxHPBuAUBlth5AOP UsIXYpCGW0UfWdURPmVVCmMPbzACIkWSU8HZm4GOYoQYDbOK2HIrSrAHPmQCR0EENhIJVvYSNxnl9AME UtLFMtHWejXjMhIFPwDPRgNYxaXTLwHMR8VVXuOAQzNYRcCB4KBkBqPPRpRZF5YdUfMUZoMGDeol2CXW HiMJLkBrEiNZQjLFWaRLMgPJtsWQSbPUH2TvraBVMo HUAfEZ4CZbMpZWEwJYD4BOfvQKLaLBLics2JAJQrSVEoZFJcSXOxUSCuVGUqZMtxDYMcKPJtLwX7ZTZq AYTkKK2VOsYeEVAnAlI0OKFcVPAzBKEyvp6ROAFhFBRqRFe3CDAkQHYkQVPyJAcxJBKwHGU6Unz0ZZUv QLTmLA9BUiIlJNIvXrt0YJCiXRRuDSCssy3QPTLkAT DeJaPjAaWhTZIgOSGdPMatQVHgAGZyVwK2LVKzSCMjSC5SWwGtCYCsLhZuCUVnWENwWNByrl6ODRUtST JlDiDsFhYuEFUlFXRtZOtrFRSkPOG7QZDeGIOeLGGeKU5NYbRhHHVuKnfdLTzmIMNhTQVhzc6BGQOjAP PsZVLeBERwKIGuKBPvFUlzYMSbSXH2UjS4ZOMpOFDc XS2ECmZnFBRjTji6XQbyYUGwUINzsr4HDYCbRGZ5TFV7DZJkENSfAWCbRJptIUDySBTvGtZyGTSeQZZk MZ4OIzIfLFAcBMK1HPjvKVIpMSVgbl2WUAQtNQA9GiBoWuXyVYSkLHEfKEazOXHuKCWnQAGsJZAmYYFw BF1XLpQjNRZoTOC1XqSzGAErDSJxmk8RXOAuYRR7Nf w1GWHcNMFbSDQnYRwzMHJpJDTlWKU0LWUgBGQcMX0AZpPeSKEiHLCcCRebCTYaMNWwpy4KQQOeJAL4FY U6AhVbSRNpVBJkNDdvIYBeXXX4TGI6MXBoGSDfGO1FTdAzCCFiSKKmJQowEPWeGCTsgk9ISDQwKDM7XD O9LSVcQFYpGVLkTEpjYSNoUGR7Csl8UCJfIKZmFD4L CsDqPPJqHnU4QxJkGMYvLMQpnr6ZKIXdQFV2TPt9NfOxOWWfSYBhJQuwEGHjZTJeHTB7TOOuLLQrZN8A TgLxHLJmUpD6CXHjPKFtCOEpwm6VKMWvIEY6LVP3XgFtGLKdQNTpIVxoZAItVTLzYbc8TZAfYPYtBR5W GfZfQEUxReFtBXnfCZHlDMNrfn5KIYJoODU1KqO2DA UtLKJeVIHlZLxtLSLjCQXdWdXuSHTrGPBwDF0GLhGbNXGlHaXiIkToBPJkMFYlqo1LOYHnOKD2YTZlSZ MtBNEuBRAwDCefWYAfDTG8HsKmOIRuTHXfPL5KSjWfUFceAMIHBpy7CUpvU1k5MOX9UE5WX2Agu1LmIG EhFOKWHSmkYZ2qzgPuDLIzZk0MD6mPSqfuPaGqCJWg DxFpLqKkNYZ7P3G0BxLmKWW8YaO1EAYePS3wVNE2TjO5VKOpPlSjRPL1OZodCZflEiD5JpQuYdE1KPJq ZrExWK9XVs6DQtI4MRN4rIMtPv0FTuH0MTuRTxJlWZ9SYXz= ID Date Data Source [id number] 06/28/2021 08:03:21 PM EDT [facility] Name Value Range Interpretation Code Description Data Dana rce(s) Supporting Document(s) [facility] KXLEUl8rIcUKHdXg66/MOBufMPBss5VlTJitPWr8WJbePJMcQ1FhZJG8yF1eDMA9ULuJHgXbRaLnIFW7 lbm [file] AgICAgICAgICAgICAgICAgICAgICAgICAgICAgICAgICAgICAgICAgICAgICAgICAgICAgICAgICAgIC NxYGOhTHNiETOgMQ8GMWWdUXJaNRXuIPKaBPAbONFoEPXkBMHvKRXoKQVzGQGoOPOoUVMoFAYaKJYvWF AgICAgICAgICAgICAgICAgICAgICAgICAgICAgICAg TDFhKLHwFABrDBCwVYSgYAWjRAOzJV5XFOUyHVTbLGQyMGCbMEBpIDRsCGPfTRHhAPWfDYCfSXByIUBa ICAgICAgICAgICAgICAgICAgICAgICAgICAgICAgICAgICAgICAgICAgICAgICAgICAgICAgICAgICAg XRHuVG6IEZNvLYMrLNQlPBMjSZFtOXLoGGVhXUWfNW AgICAgICAgICAgICAgICAgICAgICAgICAgICAgICAgICAgICAgICAgICAgICAgICAgICAgICAgICAgIC VdKSFiQMCmATEnQKRgLF2CXVDaAGLeTRYjKFBdZFOwDKKtVYMfXYHrGIRmSYMdQAWpHDLzNXQxJTVqXT AgICAgICAgICAgICAgICAgICAgICAgICAgICAgICAg RUNyFRXlKGCsVQDaDLIbLPXtVVOlWIDaAS0GDXNnEFNkWPPuPSIpNAPyWBHpKMBeWSTmRGDfRMBnHTHb ICAgICAgICAgICAgICAgICAgICAgICAgICAgICAgICAgICAgICAgICAgICAgICAgICAgICAgICAgICAg FRKqRNUhWS4CBUPfPBAqQDSsUSLoANWoSUFeOTEaOI AgICAgICAgICAgICAgICAgICAgICAgICAgICAgICAgICAgICAgICAgICAgICAgICAgICAgICAgICAgIC VpZXSxIGTjPKZuEJKuHIJhUN8JCZRqZINjOXTaTCTlIWKzXPRuXPKvTLXzNJEeBAHxJKYzMMNhVUGaXN AgICAgICAgICAgICAgICAgICAgICAgICAgICAgICAg LMFlDEWgJHEkOYVpTBJzOEBwDXGoDLHbTKVsVO1WSLMdYEZiRLUsRUOoJMBvXUHsJKNvDMDaTGZoQCDq ICAgICAgICAgICAgICAgICAgICAgICAgICAgICAgICAgICAgICAgICAgICAgICAgICAgICAgICAgICAg VTLeXIMaFIXwZR7XNESfRHWdVRNtNXCqDZMjSYGgQY AgICAgICAgICAgICAgICAgICAgICAgICAgICAgICAgICAgICAgICAgICAgICAgICAgICAgICAgICAgIC GySMAaNSNpQYBdVKGeOVWuFLRsVJ5PTT14rBRof7G6MBVkEV5wykv/Zh2KHSazayBsvGSnHO6WGvAoRS 6swi0AGxLfRI2pyz5RROvUXjXzX4X3eRRxJWViIZBO JjXkP57eEJgaDt76UTwkNEPzEfHjAAk9Pr3LFyGlI4doEDYtSvU4VYEzRvA0JTIeOxY1UDDbIgOiHNAu SFEwNR8TUITyV107avWqDB0KZm3SRcOaLC4jwu5LZeTnESZqKgkYWax8MOltPI1YlAAkdOUeLTRwXCOD RhQvT9udr7AxKmBbCJWEARrrJY2Ts7ChvHBaYJg+Pg 6SQZ7rs5QlNRijUFQnHT0kkz0UWDvWMgCaZ1MbqEkbKQxxOKDtcPYBNKKcONJnYPphEtU7YJQCEPWheN VoZN11WrHvZmTdZDV0UNOjRT9vTNsdRU3VXLA2UYnuHRCsBIBaS2bRFgNfBKDyYiPqcAljAJ7WDqPtK0 BhcmVudCAzNCAwIFINCj4+CPclvvIaEhqYAsO0ZDZs w8QiJDv8ZB8MWALfEJabFH8STXMfuQ3jCTpbBG8BNqTjGwRxTKKHXvCjK75rrTLdFTu2M4WbBaEgJADg RmlsZXMgPDwvTmFtZXMgWyBdDQogID4+ID4+JOyyGR7EMTqjjtPrUVHnVi0UWYUiDIDsAR7zLNHbAUMh F4E1pKutQZCXDiYiV7vcsrnqDU3rRSXzS261rFewem QgWAM6LHZrJe9VFAFaJIL9LYDieRXnXtHlRZCGXReiTC7BzJQeFXH8cS1pTAxrSXBhNGKjJ1uSEgRmsN wnXD09sLksycWebXZeABb+Xw7FJT4wu6DoJLv3rgVqKBjuCXE0ONhyRYHlCNJnNQKnHIC2AFU2ZTMXVu PjYYTbGFVhATgaLAQbLUGkig8DLYGjUNDdMEPjHTLb ANIwKNVkKUygREVaYBYeDYddNBHbODAaBP7MPdHhPXXgCTCaZKjgNZLjPBBdlc1XLAYcECOaZaohZREr RCVyRFCaWTjqVUCiKDSnANUcTAJlVNBiAY1DUxSdPMQwTBSnDzCvWLItUTEqvo2MCXGxSCQuDVS9EFLf SALaSTKaEYnaMMQfYFW0JPmnGIIvIDRaYI2VRrUzND IoPDuoMRxtCCSuRATnds2NGNAoEEHnTUYnZtWqCSHcRTZgFKjvNEMfPRPpUZV9FNRjAXVmXS5MJkMyOP KmRONbTQrePMRyJWLrec6HNBRxTNUiGVN9LFZkFFLxLCSrGRawTFZyBWTjYfg4QZEnRLNuHJ9BEzUmQF MlXTT5JyjcMUVgUZXbnc5MZBIqQYPpJartVRMkHYUq BCIaCWcqHCPaQMKrZTY7FTWqNJOfOF8JSiDmNFXeIUCuFTciVWFkBOZsvm1QLNCaJWRdYVQ2TRApCSTo LVDcBPifZVRhZXB8CMT9NHArKXHnKN5GLsDqIUZcHxY0IMPiAVUcLAFubt5POEEzYQAeOaX4VDXaXYRq MRXnWLbkMZQzJFO3Khe7RHNiPMFkIY2BViJuCQIaIg V4OBriDDWsGJKpdt2OJSJxSSZhNfo7SFVkZBDjWDDtFUfcTMUwCWJ3LnU2XPJxRKTeCF1KCdZwMJBrLy y7HULgSQIwZYNwmi0VNETqYGGfDUH2PWDnCTLcSNDtQCjePYNxSZR9CLT7ZRCmPPRvWJ5CLvOqYDOwEx xlVBTcUJHeXLAbdq8JPMWdMXKeMBN1ViQpQFAiFJWp EPuzWNWlYWF2VYEqJTFoJUUmQT9BZvCaZASnQaHwFZzuFOYuULEwcd8CTPCjZNZfDJR1QFJgGTWaWJWr ZVatEGPsQZBvJAR9EBCsVFMnDP4GZuXaHQksGFBDIji4NUstW0w8TIXiTq6WX4Cgh8OtMyXtIBFEBMcn OC1zhfRpUHYsGw6QD2pWAcrgLCA3OoRoBxGmKrHzID z5GcOqXRW0IlYuGUJpN1LnMn1vXTT7KFM9PcVoBAIpCFAnZtTfRST7JAIyBjQaTfC4AGUiDnYbRO7XWv 9GSvJ7KZJ2mJKbJt4TRhO0XLJPEjQtTU0MLUo= ID Date Data Source [id number] 06/28/2021 08:02:31 PM EDT [facility] Name Value Range Interpretation Code Description Data Dana rce(s) Supporting Document(s) [facility] LGCEFe8wGiLASfLc33/XUKjoCKSny7NwHIkgIDk0FOumYEOxO5WtZON3hK2qRIH5SJqBLuPyZwSaRUO5 lbm [file] AgICAgICAgICAgICAgICAgICAgICAgICAgICAgICAgICAgICAgICAgICANCiAgICAgICAgICAgICAgIC AgICAgICAgICAgICAgICAgICAgICAgICAgICAgICAg ICAgICAgICAgICAgICAgICAgICAgICAgICAgICAgICAgICAgICAgICAgICAgICAgICAgICANCiAgICAg ICAgICAgICAgICAgICAgICAgICAgICAgICAgICAgICAgICAgICAgICAgICAgICAgICAgICAgICAgICAg ICAgICAgICAgICAgICAgICAgICAgICAgICAgICAgIC AgICANCiAgICAgICAgICAgICAgICAgICAgICAgICAgICAgICAgICAgICAgICAgICAgICAgICAgICAgIC AgICAgICAgICAgICAgICAgICAgICAgICAgICAgICAgICAgICAgICAgICAgICANCiAgICAgICAgICAgIC AgICAgICAgICAgICAgICAgICAgICAgICAgICAgICAg ICAgICAgICAgICAgICAgICAgICAgICAgICAgICAgICAgICAgICAgICAgICAgICAgICAgICAgICANCiAg ICAgICAgICAgICAgICAgICAgICAgICAgICAgICAgICAgICAgICAgICAgICAgICAgICAgICAgICAgICAg ICAgICAgICAgICAgICAgICAgICAgICAgICAgICAgIC AgICAgICANCiAgICAgICAgICAgICAgICAgICAgICAgICAgICAgICAgICAgICAgICAgICAgICAgICAgIC AgICAgICAgICAgICAgICAgICAgICAgICAgICAgICAgICAgICAgICAgICAgICAgICANCiAgICAgICAgIC AgICAgICAgICAgICAgICAgICAgICAgICAgICAgICAg ICAgICAgICAgICAgICAgICAgICAgICAgICAgICAgICAgICAgICAgICAgICAgICAgICAgICAgICAgICAN CiAgICAgICAgICAgICAgICAgICAgICAgICAgICAgICAgICAgICAgICAgICAgICAgICAgICAgICAgICAg ICAgICAgICAgICAgICAgICAgICAgICAgICAgICAgIC AgICAgICAgICANCiAgICAgICAgICAgICAgICAgICAgICAgICAgICAgICAgICAgICAgICAgICAgICAgIC AgICAgICAgICAgICAgICAgICAgICAgICAgICAgICAgICAgICAgICAgICAgICAgICAgICANCjw/eHBhY2 bvmLUhiwZ6O3obLc6UCb6LUV6bx2SwIPXwUQynvmRo KvaKSrGwSFIfSuzNSdd4BDhfAA6BaQAiC7MyD8LdVYfnNL8YYNQvXRXsbMPvWFBuQGMlNyY5ORYgLDsr LP9UeZZsLCdrKWSlFGEnLkOkVTGxTVNtNADlXNKjKMRZZTGiWLQtOvInBYSdTJYmOEjbMOXPFMArAACq ZbGpLbFcXOSaHL5DWSDlH552ttYjRQ8CSp8BOxRvVP 7alb4KMDKxDCKxKegYKws2SGciSY5FeHRthFE9KoTtCWEJLbJoI9iaj8SaKCWjTSTEKNjnTO7Qg8GedM AxDQo+Eo3GFU5up0WvAPp9AxYqJS7jta1UVFpPUhLkR7KzmSqhCKejYVFtxKZFm7JxW9LpDhllPEMzPQ SbJLCtRx3vHQEpVEPaJaT3EIBSUA9OZMErVXTohGRp XKLrWALOVN3BHLrgRAT9NCYmdrEptJSoVXwcXI2TEUJpboCaZAPrRTZBJOu+Wi4NEA1kt4AqCBlxBIQi PF8bps2OBIvACuNvK7A1mZIpQ3Saey31IK5FoDL5dVVhKI2NlF8mQM2Xn3GdEXWaKyGuDADcWYCsZHZi TWIuTqPwXE1KLPTvFlQmpNDjXWXtQqGvTuLzBZDlYN YHBmOwA9FzVWapVjOqHEAUAN4YNlldMDYqS9TBXJyETN7KE6gAS8EMFM4MBLiRMrzLVkLQB0SKT1KXF3 8TCcBlVP2+OW1FSk6DBnOdSU4tnb3DIMsvQFZfLmtRGge6XBlbFY9GeCGgT6IroBHsz7fSCrJcA0BQXI UsMJNyGp6EFBPnBhAgYJKeNSjdCY4gLCKxIUITpSqc dpG6ML6TRN9pjqVzQU1XNcIcOf2fKu8JAhImO2ZsA3OcPSYqYQPGXQlpHK7THUriEK9uUH5Lz3DDkZNt fY1ybh5JPIGdGREpXyjnbg1XEldjS2M4pTuhHUPhOJAcTSOQVMwrVS5MQXMvRBJ9QVF1RZOxVJSXKmYn H51gOE1NI0Wxq24tZrP9JXDpZsKwNMgaBX29uHnixd BcgTZgjDqdQD7WLs8+HSmymjSeJtwBQdkpMKKYBfVfZLsZQaLbIQTdKKWbQTTjRpG1YvVqGh8WIONaDU MlRDZjGkGoEEMqCMQeAYksYOEsNHU2OpuzVTEeEDDhAW6JJrPaLASlRFFuPgWxOOUqAPUrmz2NFVCaGG KpENV0UhAtDTZaPNCiYHglWBPaUAU7CxR6FCUhLJQz ZM3CZlMhSUAfVQX5EnixXDRcOQLyaf6BRMAbHUDmHFMhKSEgLUFeSCPbDXhoCSVnFLB4QHU5DVWgJMVg NK8DXzWdYFAjEGW1ClWwSXAvRJEkwo7VJJUgICEsDiv2VRRzONDlLPWoUXxvNOGgDCI2KHSsGEVtSLPv JO8THcUqUPOrGOI1IAfnDMMpIDZyyy9STZRfTZDsMM M2XIQeNGVhMANrKGmlMWQbCUW8PhNsMUVqDZIfGV5GVxHyZRBfPoA4AQowKIRsPHQkmj6GNZQcFPLkCh J5VXYyFEWuSHJjRSibKYVwULL5Cxm8AHQyMWFlZH0QJdLvVAWwFTW8AOBhNSXhMFXcci6DEWNbCFRdDj YsNMKtOYNjGICaZSdtOJSzROBuZkZoEBFpJMAqVA0U WiZjQWTeXrG4PSSfIDRtYUBwtn6EXPFrIJWaSCQ6AZHkGMDhITCwIXwjIZVcNSAyYpRcQGXmKTTzVQ4E RxGkQKAzDuQ6SXSjOUGyKSXhcr2SSMEeAVTqPzlvOMXgNGYeRZCxRTieZJJmQRIjNUrgCJVzYVAvYA3E DjVyACQuKjLoHYUuZSVjDQMvvq4UBZNsMBSuNHD2Gy LaFSBcFCZuYMuzFORsTSD2XOBrYECmQZLlNU6TNjKdAILyIxM0CEPfWJUqYJQcuc8UNBKmEYWsUDT4Dc KtNVQzCHEfJPulVOZoNUA9QnoxQIMkDHXpZU0FUlApGOEwToC6RBKdTJQqGCCkrw0OKDNxYWRdTfg0UK UiVCMsCHAaLAewVJVfRVQ6NKW0AEYtPICbLG0BUsPz GMTyGldhECByWNPpDYYjgn6VBNAlVMRxUXTcUkVeGDSkWFNfLDkpTPMdKRS7MJj8KCQbREWyRF0SToZc NZJqLLOfNPRfDUGiBQYkkg0MISDzQOX1DvP3FqXhGPTkLDEpTJsiRCZbLZCoOPz0BMPfJHXsWQ6OJuRc CTUcBIQnCkGyUWFmGDGwqf5GHEGfPUM3ODR9DVGeHL IzMDCmITvcGKLzRCW4QxCyIXTxDTOdYU1NSfDdDMClKUBuIDSqPZDwLIDhyy6XGLHpQGR4EvT9OdDtAV OxSNBeLVbfCQIzHYG9BImzEGQgCQZmNF4RKsIzLYsiTEBVKhl1FKezV4z1AXX1YV4KC0Ufq7CpPYxmNN VVWJrsGX0qzjZmAHDxRu2RA2xOIfknLqCiGEX5IWEc U3B5Snl3HfPzHdJwITJtI6N5GqP9UW7lGWWkBULrTWutOQZ0GOaqRXUcJVRuZiBhMpKdWGGhXMY2MqJa GU9KOi7GTgB5IRH8uVAzJt2CMFD3AhaVQyYeRA7TDMx= ID Date Data Source [id number] 06/28/2021 02:19:34 PM EDT [facility] Name Value Range Interpretation Code Description Data Dana rce(s) Supporting Document(s) Consultation [facility] YVOGLt1fZvUXKcYv50/QZOanIUPrf7CiZRvsFZu5APznUEQxJ8OzJLR1nY6iGWZ8IHaAZfEuNuUzTLT5 lbm [file] DARLIN+ISwlSPrtqDt1mHTvIBZsKg8GMWUpHKMqFRUnNOOxXVJeHKLqTMUjCQDfSFVvAUVnEJIwLPEiIDSr ICAgICAgICAgICAgICAgICAgICAgICAgICAgICAgICAgICAgICAgICAgICAgICAgICAgICAgICAgICAg MT1ZQHWlDHWtJJMbLTFtZCCqNCHkUTVsQCFgEZFiWD AgICAgICAgICAgICAgICAgICAgICAgICAgICAgICAgICAgICAgICAgICAgICAgICAgICAgICAgICAgIC QpNHXwDQBcGUOrNQ8QMCNvKZPnDTEsSBNtTUFnXMCfIBCnYWTtERTcZHHzINIuKLNsVVRqLCAvZGViBG AgICAgICAgICAgICAgICAgICAgICAgICAgICAgICAg MXOsGHMnCDUyNLBnSLFeVEYoETTyCY6HHINlOYElFRMfPXLaTGUeBRKwELMiWYGmLIQvGUPeCFSzGZKl ICAgICAgICAgICAgICAgICAgICAgICAgICAgICAgICAgICAgICAgICAgICAgICAgICAgICAgICAgICAg LXKtUE7YNRVwKZRvSEOjZNMyZUMcLRMwBANlFORlWI AgICAgICAgICAgICAgICAgICAgICAgICAgICAgICAgICAgICAgICAgICAgICAgICAgICAgICAgICAgIC NvZGEzHLTzQMNqMPCwGI1YTWMxHTJfBPPtIGRrLBAfDTXzVSJcHQZvBXMcINOyXOKcLPKwOLNwNUDnYR AgICAgICAgICAgICAgICAgICAgICAgICAgICAgICAg DTSxHSPfDVObBVJfGVEjLUWzLZTeNUDxFZ8ZVCRvIUUbFCIsVHMnGUIkKQFoOECpJMHoOZLcPGLkBDCn ICAgICAgICAgICAgICAgICAgICAgICAgICAgICAgICAgICAgICAgICAgICAgICAgICAgICAgICAgICAg MSIpUQZlCL7RAGFmJRSxKPLlSOAuVLAcFXQrRJGjML AgICAgICAgICAgICAgICAgICAgICAgICAgICAgICAgICAgICAgICAgICAgICAgICAgICAgICAgICAgIC ZvVXTnTDLdBEQhKSKzULYnNT1XMGPiYONrWOAtIXBqUPFpVXCjMVOtGPUgAAJgBPXqDQYsOKHzBVJfFG AgICAgICAgICAgICAgICAgICAgICAgICAgICAgICAg ZZRzAZJqKDJsPCOxZQBfZYYdZHEjNGTsOBHkAU8DQJOlSHRtQCPsOCRpKBAoOVHfQPBcUKSjSWAwELDm ICAgICAgICAgICAgICAgICAgICAgICAgICAgICAgICAgICAgICAgICAgICAgICAgICAgICAgICAgICAg IOOzYUZhJDVuTX1SWT11wXYhh0Q1UFOrKA3buey/Pg 9ZDAkejpWhdHTiFI8BNoRvWI5bcg6DVpTnPE2miu4CMNqCTsOzW8Z4cTGqGRRqFSDMSkAxG55xUEcmZl 67RBmsYUKiPgTyZYe9Ul2MCgMmI9ynHLLiPrN7CQJdIxO7MACiHqI7EVBxQoPsGJWeRZCkTNHvFMYJSY 3PQoCmR6VbgZ87EHEUQy0+VZbeyxBhNorMLzE4ALNn d1HvIDh0VT7PUJOhCyclf2GpDuayHQQSXCmiZW8BGCN8HJN1FCKcBe7WXNWaE450rfNiHN7SFe0FPnGy MG4eil9ZQxngHPFyYryLAap3RTcyUR4MeWRwPPqWg39zgFp4orYqhQDNZXKzgAUomPMbMYWCaXFvx7kg okZwYSvGF0ekJAPrFIBgIj6dASDgULIrMmT0NKRWPQ 9LAFJjRJNnrGJwVYUxZKTVCD6EDGtpFDT4AJJtmzIvzWNnCAlhQX5YBCChuiQmCtyyTFWGTDv+Pg0KZW 7oz5ShOYdbRPGdGH8miw5ZPSrINkDqO4W0pKWgV4R3TEgfCm8CJWIpQGDsJrDhFJPRDCkfCT6TVO7tck R5YQ4IkQNqPQIhIWYihLBwOIk0M00raUGcWGtkRS9G ICA+Maximo+Ul5VOGRpWFWcEOSxTfOgHHMCEjThX4QjN1KXm6RlE5TwYA31lWhrqdLvIBnxZF7DUW5aUFVu WXPQGJ6SsYZbxN4udyLsYvHdDNJYNpWpW73dwKXbKRNyPJH4PLAsRc9CYZQgJ5QssdKzlCsgtjZzWGDs OGCPYM9UPZpacwIcgUShiOamMA16aClkXC6EQr0TCm ZoGK4snb2IyVUcPi0QYIRaSG3PMAFwBYBbBOChTPJ0LVWcTqLfJRfjQMFsMOYeVAW0IBFqKKOgMX1UNi ThUGIgXvR0PIKiNAEcYWPbuv3URAZjQLXeElWsRQGnTWTgXRVrYOlhKZOrYPPmNDQ2BVZyQGVzYV5DZm AiYCMfBEZ0FPFtTTQyAMTuiw3NHAPfOAYnStdmGvOv IGZbLHRmFYolGLJzJRF9OIHnILIzOTDcOQ9CLrNmXNCqPBhgBGaeDFTnBWDayb8SIOBfTINzZNx4ZEEn ZUZlNMUhUIumNMIwXCMtNZN8ESLvLNPzDN2TGjFoNORcRJY9QEHqZDToVMYult8MTHTsJAItJQOeHUUe GKIsHSMaKDhfVDUoUSA3DyA3ACXxTUYvNC8YZfKbGJ CqBGQ3RaOjWOAhAUMqyg2MKJJmOZGjDrDnCYScSDQiEUOjJIncMCDfPEX1EqOdVVUmZRWtXM8CKpErIK XwPEo9LPUxKZHjAWCicr8YMWPoLRYsEHo8OjXuJUJeCMCdXBglSKOuSQN1OGe4FFXsCKFbOB4DSsJbTL EsVVedAySfAOCuWNUptm3SEDPnYXYbZNH7NYWnQIPr PUZmUOtyYUKtVUTcDDE9HODeRAMrTD2XQrXdFWZvJoDxOyQwPDPtJLKlip6SRPQxSRByRVHxSQZfSJUk AXKfBLggYETbPWZzKVYkAXAcYYWyIN9EKyClHDWaPyH3AiPwRMKwVKAzjh3VIJFfCTCfYoWzTVDfVECh AFKmFSyyRAAbWUMgIwj6EJXbWWHnBR7LVtIzCHLlGc K4JHflEBGbMCUvyb9GvIFinDatpx4ONKgNKa1MrKpkJZZfOZcbTk2svNKlOFOjPRGCPf8ElfVcMRYnAR YANLqpOXLcINJlFvXgZ1FcNtixVTf1CWQcNdAkDiRjPmNfUou9WiTqCuG9SdOtSVAgR8T9P6E2WRQaSJ Z1PsK2KzB2DCQ4JNH5AUR+BI1vMTq+Zx1Az4NgfzL7ouYwOOzaNuq0Kk3ZUDGBF8OONe== ID Date Data Source [id number] 06/27/2021 02:19:00 PM EDT [facility] Name Value Range Interpretation Code Description Data Dana rce(s) Supporting Document(s) SARS coronavirus 2 RNA [Presence] in Res piratory specimen by ROBIN with probe detection NEGATIVE [place] This lab was ordered by [facility] a nd reported by [facility]. Procedure Social History No Information Vital Signs ID Date Data Source [id number] 07/02/2021 07:48:28 AM EDT [facility] Name Value Range Interpretation Code Description Data Source(s) WEIGHT RECORDED 195 lb 195 lb [facility] Body height Measured 66 in 66 in [facility] TRANSFER FROM [facility]
[2021-07-13] MEDS ORDERED: NS 1,000 ML IV ONE (16:20)
[2021-07-13] MEDS ORDERED: IBUPROFEN 600MG TAB PO ONE (17:40)
[2021-07-13 18:15] LABS: BASO % 0.2 % (0.0-1.0); HEMATOCRIT 45.7 % (36.0-47.0); HEMOGLOBIN 15.2 g/dl (12.0-15.5); LYMPH # 1.7 10^3/uL (1.5-5.0); LYMPH % 16.5 % (24.0-44.0); MEAN CORPUSCULAR HEMOGLOBIN 31.1 pg (27.0-33.0); MEAN CORPUSCULAR HGB CONC 33.3 g/dl (32.0-36.5); MEAN CORPUSCULAR VOLUME 93.6 fl (80.0-96.0); MONO % 9.8 % (2.0-8.0); NEUTROPHILS # 7.7 10^3/uL (1.5-8.5); NEUTROPHILS % 73.1 % (36.0-66.0); PLATELET COUNT, AUTOMATED 256 10^3/uL (150-450); RED BLOOD COUNT 4.88 10^6/uL (4.00-5.40); WHITE BLOOD COUNT 10.6 10^3/uL (4.0-10.0)
[2021-07-13 18:42] LABS: MONO SCRN NEGATIVE (NEGATIVE)
[2021-07-13 18:43] LABS: BLOOD UREA NITROGEN 12 MG/DL (7-18); CARBON DIOXIDE LEVEL 24 MEQ/L (21-32); CHLORIDE LEVEL 103 MEQ/L (98-107); CREATININE FOR GFR 1.19 MG/DL (0.55-1.30); GLUCOSE, FASTING 73 MG/DL (70-100); POTASSIUM SERUM 4.3 MEQ/L (3.5-5.1); SODIUM LEVEL 137 MEQ/L (136-145)
[2021-07-13] MEDS ORDERED: CEPHALEXIN 500 MG CAP PO ONE (18:50)
[2021-07-13] MEDS ORDERED: CEPH500C PO (18:50)
[2021-07-13 19:13] VITALS: BP 126/63
== END 2021-07-13 19:15 | disposition home or self-care (01) ==
LOC: M ED 11:44
DX: E86.0 Dehydration (principal); J02.9 Acute pharyngitis, unspecified; J30.89 Other allergic rhinitis

== ENCOUNTER 2021-12-05 10:50 | Emergency (ER) | payer OTHER ==
[~2021-12-05] VITALS: Ht 167.6 cm; Wt 90.9 kg
[~2021-12-05 10:50] MED LIST changes: +CEPH500C PO
[2021-12-05 16:40] VITALS: BP 135/74
== END 2021-12-05 16:47 | disposition home or self-care (01) ==
LOC: M ED 10:50
DX: R10.2 Pelvic and perineal pain (principal); E28.2 Polycystic ovarian syndrome; E55.9 Vitamin D deficiency, unspecified

== ENCOUNTER 2022-01-23 10:26 | Inpatient (IN) | payer OTHER ==
[~2022-01-23] VITALS: Ht 167.6 cm; Wt 90.8 kg
[2022-01-23 11:56] LABS: HEMATOCRIT 42.2 % (36.0-47.0); MEAN CORPUSCULAR HEMOGLOBIN 30.3 pg (27.0-33.0); MEAN CORPUSCULAR HGB CONC 33.2 g/dl (32.0-36.5); MEAN CORPUSCULAR VOLUME 91.3 fl (80.0-96.0); PLATELET COUNT, AUTOMATED 285 10^3/uL (150-450); RED BLOOD COUNT 4.62 10^6/uL (4.00-5.40); WHITE BLOOD COUNT 6.8 10^3/uL (4.0-10.0)
[2022-01-23 12:27] LABS: RSV AMPLIFICATION NEGATIVE (NEGATIVE)
[2022-01-23 12:30] LABS: ACETAMINOPHEN LEVEL < 2.0 UG/ML (10.0-30.0); ALT/SGPT 32 U/L (12-78); BILIRUBIN,DIRECT 0.1 MG/DL (0.0-0.2); BILIRUBIN,TOTAL 0.4 MG/DL (0.2-1.0); BLOOD UREA NITROGEN 13 MG/DL (7-18); CALCIUM LEVEL 9.9 MG/DL (8.5-10.1); CARBON DIOXIDE LEVEL 25 MEQ/L (21-32); CHLORIDE LEVEL 108 MEQ/L (98-107); CREATININE FOR GFR 0.68 MG/DL (0.55-1.30); ETHYL ALCOHOL (ETHANOL) 0.003 % (0.000-0.010); GLUCOSE, FASTING 88 MG/DL (70-100); POTASSIUM SERUM 4.6 MEQ/L (3.5-5.1); SALICYLATE LEVEL < 1.7 MG/DL (5.0-30.0); SODIUM LEVEL 141 MEQ/L (136-145); THYROID STIMULATING HORMONE 0.692 uIU/ML (0.463-3.98); TOTAL PROTEIN 7.1 GM/DL (6.4-8.2)
[2022-01-23 12:40] LABS: HCG, SERUM QUALITATIVE NEGATIVE (NEGATIVE)
[2022-01-23 13:41] LABS: AMPHETAMINES LEVEL URINE NEGATIVE (NEGATIVE); BARBITURATES URINE NEGATIVE (NEGATIVE); BENZODIAZEPINES URINE NEGATIVE (NEGATIVE); CANNABINOIDS URINE NEGATIVE (NEGATIVE); COCAINE METABOLITE URINE NEGATIVE (NEGATIVE); METHADONE URINE NEGATIVE (NEGATIVE); OPIATES URINE NEGATIVE (NEGATIVE); PHENCYCLIDINE URINE NEGATIVE (NEGATIVE)
[2022-01-24] MEDS ORDERED: MEDR10TA PO (01:03)
[2022-01-24] MEDS ORDERED: ALBU8.5H INH (01:03)
[2022-01-24] MEDS ORDERED: ERGO500029 PO (01:03)
[2022-01-24] MEDS ORDERED: PROMSYP PO (01:03)
[2022-01-24] MEDS ORDERED: HOME MED LIST COMPLETE! XX SCH (01:05)
[2022-01-24] MEDS: NICOTINE 21MG/24HR 1 EA TRANSDERMAL TD SCH (09:00)
[2022-01-24] MEDS ORDERED: IBUPROFEN 400MG TAB PO PRN (09:55)
[2022-01-24] MEDS ORDERED: OLANZapine ORAL DISINTEGRATING TAB 5MG PO PRN (09:55)
[2022-01-24] MEDS ORDERED: ALBUTEROL 90 MCG/ACT 8GM HFA INHALER INH PRN (09:55)
[2022-01-24] MEDS ORDERED: diphenhydrAMINE 25MG CAP PO PRN (09:55)
[2022-01-24] MEDS ORDERED: MAALOX 30 ML SUSP *UDC PO PRN (09:55)
[2022-01-24] MEDS ORDERED: MOM 30ML SUSPENSION UDC PO PRN (09:55)
[2022-01-24] MEDS ORDERED: ACETAMINOPHEN TAB 650MG DOSE (2X325MG) PO PRN (09:55)
[2022-01-24] MEDS ORDERED: B-2100TA PO (11:01)
[2022-01-24 11:05] VITALS: BP 139/65
[2022-01-24] MEDS: medroxyPROGESTERone 5MG TABLET PO SCH (13:37)
[2022-01-24 18:07] VITALS: BP 139/74
[2022-01-25 06:27] VITALS: BP 149/67
[2022-01-25] MEDS: NICOTINE 21MG/24HR 1 EA TRANSDERMAL TD SCH (09:00)
[2022-01-25] MEDS: medroxyPROGESTERone 5MG TABLET PO SCH (09:39)
[2022-01-25 18:26] VITALS: BP 126/82
[2022-01-26 07:02] VITALS: BP 147/67
[2022-01-26] MEDS: medroxyPROGESTERone 5MG TABLET PO SCH (08:57)
[2022-01-26] MEDS: NICOTINE 21MG/24HR 1 EA TRANSDERMAL TD SCH (08:57)
[2022-01-26 18:04] VITALS: BP 139/64
[2022-01-27 06:40] VITALS: BP 134/58
[2022-01-27] MEDS: medroxyPROGESTERone 5MG TABLET PO SCH (08:51)
[2022-01-27 18:09] VITALS: BP 140/68
[2022-01-28 06:44] VITALS: BP 135/65
[2022-01-28] MEDS: medroxyPROGESTERone 5MG TABLET PO SCH (08:34)
[2022-01-28] MEDS ORDERED: VITAMIN D 50,000 UNITS CAPSULE (ERGOCALCIFEROL 1.25MG) PO SCH (09:00)
[2022-02-23] MEDS ORDERED: medroxyPROGESTERone 5MG TABLET PO SCH (09:00)
== END 2022-01-28 12:29 | disposition home or self-care (01) | DRG 885 ==
LOC: M ED 10:26 → M ED INP 01-24 10:27 → M PSY 01-24 10:59
PROVIDERS: ADMIT Psychiatry & Neurology Psychiatry; ATTEND Psychiatry & Neurology Psychiatry
DX: F33.0 Major depressive disorder, recurrent, mild (principal); F12.10 Cannabis abuse, uncomplicated; F10.10 Alcohol abuse, uncomplicated; Z91.410 Personal history of adult physical and sexual abuse; F43.23 Adjustment disorder with mixed anxiety and depressed mood; J45.909 Unspecified asthma, uncomplicated; E55.9 Vitamin D deficiency, unspecified; M54.9 Dorsalgia, unspecified; F17.200 Nicotine dependence, unspecified, uncomplicated; Z79.899 Other long term (current) drug therapy; Z91.048 Other nonmedicinal substance allergy status; Z91.51 Personal history of suicidal behavior; Z65.3 Problems related to other legal circumstances; Z59.9 Problem related to housing and economic circumstances, unspecified

== ENCOUNTER 2022-03-15 17:22 | Emergency (ER) | payer OTHER ==
[~2022-03-15] VITALS: Ht 167.6 cm; Wt 94.9 kg
[~2022-03-15 17:22] MED LIST changes: +ALBU8.5H INH; +B-2100TA PO; +ERGO500029 PO; +MEDR10TA PO; +PROMSYP PO
[2022-03-15 17:23] VITALS: BP 154/71
[2022-03-15] MEDS ORDERED: AMOX875T2 (17:36)
[2022-03-15] MEDS ORDERED: ACET-683 PO (17:36)
[2022-03-15] MEDS ORDERED: IBUP200T46 PO (17:36)
== END 2022-03-15 23:15 | disposition left against medical advice (07) ==
LOC: M ED 17:22
DX: Z53.21 Procedure and treatment not carried out due to patient leaving prior to being seen by health care provider (principal)

== ENCOUNTER 2022-05-21 08:37 | Day surgery (SDC) | payer OTHER ==
[~2022-05-21] VITALS: Ht 167.6 cm; Wt 95.9 kg
[~2022-05-21 08:37] MED LIST changes: +ACET-683 PO; +AMOX875T2; +IBUP200T46 PO
[2022-05-21] MEDS ORDERED: LR 1,000 ML IV SCH ×3 (08:50→13:00)
[2022-05-21] MEDS ORDERED: propofoL 200 MG/20 ML VIAL As Ordered ONE (09:57)
[2022-05-21] MEDS ORDERED: dexameTHASONE 4 MG/ML 1ML VIAL (J1100 PER 1MG) As Ordered ONE (09:57)
[2022-05-21] MEDS ORDERED: ONDANSETRON 4MG 2ML VIAL As Ordered ONE (09:57)
[2022-05-21] MEDS ORDERED: LIDOCAINE 2% 100MG/5ML SDV (FOR ANES.) As Ordered ONE (09:57)
[2022-05-21] MEDS ORDERED: MIDAZOLAM INJ 2MG/2ML VIAL (J2250 PER 1MG) As Ordered ONE (09:57)
[2022-05-21] MEDS ORDERED: fentaNYL 100 MCG/2 ML INJECTION As Ordered ONE (09:57)
[2022-05-21] MEDS ORDERED: BUPIVACAINE/EPIN 0.5% 30 ML VIAL As Ordered ONE (10:01)
[2022-05-21] MEDS ORDERED: ONDANSETRON 4MG 2ML VIAL IV PRN ×2 (11:00→13:00)
[2022-05-21] MEDS ORDERED: HYDROMORPHONE HCL 0.5 MG/ 0.5 ML SYRINGE (J1170 PER 1) IV PRN (11:00)
[2022-05-21] MEDS ORDERED: PERCOCET 5MG/325MG TAB PO PRN (11:00)
[2022-05-21] MEDS ORDERED: MEPERIDINE INJ 25 MG/ML VIAL (J2175) IV PRN (11:00)
[2022-05-21] MEDS ORDERED: ALBUTEROL SULFATE 2.5 MG/0.5 ML INH NEB SOLN INH PRN (11:00)
[2022-05-21] MEDS ORDERED: SUGAMMADEX SODIUM 500 MG/5 ML VIAL (BRIDION) As Ordered ONE (11:28)
[2022-05-21] MEDS ORDERED: ROCURONIUM BROMIDE 50 MG/5 ML VIAL As Ordered ONE (11:28)
[2022-05-21] MEDS: fentaNYL 100 MCG/2 ML INJECTION IV PRN ×4 (11:53→12:11)
[2022-05-21] MEDS ORDERED: HYDROcodone/APAP LIQUID 7.5-325MG 15ML UDC (LORTAB ELIXIR) PO PRN (13:00)
[2022-05-21 13:15] VITALS: BP 126/62
== END 2022-05-21 13:44 | disposition home or self-care (01) ==
LOC: M SDC 08:37
PROVIDERS: ATTEND Otolaryngology
DX: J35.01 Chronic tonsillitis (principal); J45.909 Unspecified asthma, uncomplicated; E28.2 Polycystic ovarian syndrome; F41.9 Anxiety disorder, unspecified; F43.10 Post-traumatic stress disorder, unspecified; R06.83 Snoring; Z79.899 Other long term (current) drug therapy
CPT/HCPCS: 42826; 81025; 88302; J1100; J2250; J2405; J3010

== ENCOUNTER → 2022-07-29 | Outpatient (REF) | LOC: M PLAIMG 10:40 | PROVIDERS: ATTEND Internal Medicine | DX: Z11.52 Encounter for screening for COVID-19 (principal) ==